=== PATIENT | female | born 2000 | race Caucasian/White ===

== ENCOUNTER 2022-04-20 18:25 | Emergency (ER) | payer MEDICAID, SELFPAY ==
--- NOTE | 2022-04-20 19:03 | ED_ITS ---
HPI - Alcohol General Chief Complaint: ETOH/Substance Use <BERNICE Winston - Last Filed: 04/20/22 19:05> Stated Complaint: alcohol poisoning <BERNICE Winston - Last Filed: 04/20/22 19:05> Time Seen by Provider: 04/20/22 20:05 <BERNICE Winston - Last Filed: 04/20/22 19:05> Source: patient and family <Richard Frias MD - Last Filed: 04/20/22 20:44> Mode of arrival: ambulatory <Richard Frias MD - Last Filed: 04/20/22 20:44> Limitations: no limitations <Richard Frias MD - Last Filed: 04/20/22 20:44> History of Present Illness HPI narrative: 21-year-old female came in after drinking 2 martinis last drink was 14:30 patient felt nauseous and very drunk after which is very unusual for her patient normally drink more than 2 Babar and get less drunk, patient now in the ED is not nauseous, declined abdominal pain and feels better more sober. Decline using any drugs. <Richard Frias MD - Last Filed: 04/20/22 20:44> Related Data Allergies/Adverse Reactions: Allergies Allergy/AdvReac Type Severity Reaction Status Date / Time levalbuterol [From Xopenex] AdvReac Intermediate Unknown Verified 04/20/22 19:04 shell fish Allergy Unknown Unknown Uncoded 04/20/22 19:04 <BERNICE Winston - Last Filed: 04/20/22 19:05> Review of Systems 2 Review of Systems: All other systems are reviewed and are negative Constitutional: Reports as per HPI and Reports no additional constitutional complaints Eyes: Reports as per HPI and Reports no additional eye complaints Reports system reviewed and no additional complaints, except as documented Cardiovascular: Reports as per HPI and Reports no additional cardiovascular complaints Respiratory: Reports as per HPI and Reports no additional respiratory complaints Gastrointestinal: Reports as per HPI and Reports no additional gastrointestinal complaints Genitourinary: Reports no additional female genitourinary complaints Musculoskeletal: Reports no additional musculoskeletal complaints Skin/Breast: Reports system reviewed and no additional complaints, except as docu Psychiatric: Reports no additional psychiatric complaints Endocrine: Reports no additional endocrine complaints Hematologic/Lymphatic: Reports no additional hematologic/lymphatic complaints Allergic/Immunologic: Reports no additional allergic/immunologic complaints Reports system reviewed and no additional complaints, except as documented and Reports Abnormal speech present <Richard Frias MD - Last Filed: 04/20/22 20:44> [facility] Social History Social History: Social History Advance Directives: No Advance Directives Information Provided: No <BERNICE Winston - Last Filed: 04/20/22 19:05> Physical Exam ED Vital Signs: Vital Signs - 24 hr 04/20/22 19:05 04/20/22 19:49 Temperature 99.1 F 98.4 F Pulse Rate 112 H 107 H Respiratory Rate 16 17 Blood Pressure 141/87 H 132/76 Pulse Oximetry 99 98 Oxygen Delivery Method Room Air Room Air BMI result Body Mass Index 29.2 <BERNICE Winston - Last Filed: 04/20/22 19:05> Vital Signs - 24 hr 04/20/22 19:05 04/20/22 19:49 Temperature 99.1 F 98.4 F Pulse Rate 112 H 107 H Respiratory Rate 16 17 Blood Pressure 141/87 H 132/76 Pulse Oximetry 99 98 Oxygen Delivery Method Room Air Room Air BMI result Body Mass Index 29.2 Vital signs have been reviewed as appeared to be correct. Blood pressure normal. Heart rate normal. Respiration rate normal. Temperature normal. Oxygen saturation normal. <Richard Frias MD - Last Filed: 04/20/22 20:44> Appearance: Alert. Oriented X3. No acute distress. Head: Normal external exam. Normocephalic. Atraumatic. No Boyd signs noted. No raccoon eyes noted Eyes: PERRLA. EOMI. Conjunctiva and sclera normal. Eyelids normal. ENT: TM's Normal. Pharynx normal. Uvula midline. Moist mucous membranes. No trismus noted. No drooling noted. No muffled voice noted. Neck: Normal inspection. Neck supple. FROM. No adenopathy. Thyroid Normal. No meningeal signs. No neck mass noted. CVS: Normal heart rate and rhythm. Heart sound normal. No murmurs noted. Pulses normal throughout. Respiratory: No respiratory distress. Painless inspiration. Breath sounds no rmal. No wheezes/rales/rhonchi noted. Chest nontender. No accessory muscle usage noted or decreased air movement noted. Abdomen: Soft and nontender. Bowel sounds normal in all 4 quadrants. No disten tion noted. No organomegaly noted. No visible injury noted. Back: No CVA tenderness. Full range of motion noted. Skin: Skin warm and dry. Normal skin color. Normal skin turgor. No rashes/lesions/lacerations noted. Extremities: No lower extremity edema. Extremities exhibit normal range of mo tion. Extremities nontender. Neuro: Oriented X 3. Cranial nerve exam: II-XII are grossly intact No motor deficit. No sensory deficit. Reflexes normal. <Richard Frias MD - Last Filed: 04/20/22 20:44> Course Course Course Narrative: This is an RME: Additional HPI, ROS, PE not included below will be deferred to primary provider. 21-year-old female presents with alcohol intoxication, will drink 2 martinis and feels nauseous and drunk. Denies SI and HI. No other drugs or tobacco reported. No other medical complaints. Physical exam patient smells like alcohol. Vital signs stable. Plan at this time Zofran, fluids basic labs and ethanol level. Will also obtain SUBRAMANIAN <BERNICE Winston - Last Filed: 04/20/22 19:05> Reevaluation(s) Reevaluation #1: Alcohol intoxicated 21-year-old female, unremarkable labs, vital signs are stable will discharge home with her adult sober family member who is at the bedside. <Richard Frias MD - Last Filed: 04/20/22 20:44> Time: 20:41 <Richard Frias MD - Last Filed: 04/20/22 20:44> Medical Decision Making Differential Diagnosis Differential Diagnoses: The differential diagnosis associated with the presentation includes (Alcohol intoxication, other coingestion, drug abuse, electrolyte disturbance, metabolic encephalopathy.) <Richard Frias MD - Last Filed: 04/20/22 20:44> Lab Data MDM Lab Attestation statement: I reviewed the patient's lab results. <Richard Frias MD - Last Filed: 04/20/22 20:44> Result Diagrams: 04/20/22 19:25 04/20/22 19:25 <BERNICE Winston - Last Filed: 04/20/22 19:05> Labs: Lab Results 04/20/22 04/20/22 04/20/22 Range/Units 19:25 19:25 20:09 WBC 5.5 (4.8-10.8) X10*3/uL RBC 5.17 (4.20-5.50) X10*6/uL Hgb 15.5 (12.0-16.0) g/dl Hct 45.4 (37.0-47.0) % MCV 87.8 (80.0-98.0) fL MCH 30.0 (27.0-33.0) pg MCHC 34.1 (31.0-35.0) g/dl RDW 13.0 (11.0-16.0) % Plt Count 401 H (160-400) X10*3/uL MPV 9.0 L (9.4-12.3) fL Immature Gran % (Auto) 0.4 (0.0-0.4) % Neut % (Auto) 57.4 (45-73) % Lymph % (Auto) 33.2 (20-40) % [place] % (Auto) 5.3 (2-11) % Eos % (Auto) 2.6 (0-4) % Baso % (Auto) 1.1 (0-2) % Lymph # (Auto) 1.8 (1.2-4.9) X10*3/uL [place] # (Auto) 0.3 (0.1-1.2) X10*3/uL Eos # (Auto) 0.1 (0.0-0.4) X10*3/uL Baso # (Auto) 0.1 (0.0-0.2) X10*3/uL Abs Immat Gran (auto) 0.02 (0.00-0.03) X10*3/uL Absolute Neuts (auto) 3.2 (2.0-8.3) x10*3/uL Absolute Nucleated RBC 0.000 (0.0-0.012) X10*3/uL Nucleated RBC % (auto) 0.0 (0.0-0.2) /100WBC Sodium 140 (135-145) mmol/L Potassium 4.3 (3.3-5.1) mmol/L Chloride 108 (96-108) mmol/L Carbon Dioxide 19 L (22-29) mmol/L Anion Gap 17 (12-20) BUN 11 (9-16) mg/dL Creatinine 0.88 (0.5-1.4) mg/dL Estim Creat Clear Calc 100.7 Estimated GFR > 60 Random Glucose 105 (60-115) mg/dL Calcium 9.2 (8.4-10.2) mg/dL Magnesium 2.0 (1.6-2.6) mg/dL Total Bilirubin 0.2 (0.0-1.0) mg/dL AST 12 (5-31) U/L ALT 14 (0-31) U/L Alkaline Phosphatase 98 (39-117) U/L Total Protein 7.4 (6.5-8.0) g/dL Albumin 4.7 (3.5-5.0) g/dL Urine Color Yellow Urine Appearance Clear Urine pH 5.0 (5.0-9.0) Ur Specific [place] 1.020 (1.005-1.025) Urine Protein Negative (Neg-Trace) mg/dL Urine Glucose (UA) Negative (Negative) mg/dL Urine Ketones Trace (Negative) mg/dL Urine Blood Negative (Negative) Urine Nitrite Negative (Negative) Ur Leukocyte Esterase Negative (Negative) Urine Test (NEGATIVE) Urine Opiates Screen (Not Detect) Urine Fentanyl Screen (Not Detect) Ur Barbiturates Screen (Not Detect) Ur Phencyclidine Scrn (Not Detect) Ur Amphetamines Screen (Not Detect) U Benzodiazepines Scrn (Not Detect) Urine Cocaine Screen (Not Detect) U Marijuana (THC) Screen (Not Detect) Ethyl Alcohol 63 mg/dL 04/20/22 04/20/22 Range/Units 20:09 20:09 WBC (4.8-10.8) X10*3/uL RBC (4.20-5.50) X10*6/uL Hgb (12.0-16.0) g/dl Hct (37.0-47.0) % MCV (80.0-98.0) fL MCH (27.0-33.0) pg MCHC (31.0-35.0) g/dl RDW (11.0-16.0) % Plt Count (160-400) X10*3/uL MPV (9.4-12.3) fL Immature Gran % (Auto) (0.0-0.4) % Neut % (Auto) (45-73) % Lymph % (Auto) (20-40) % [place] % (Auto) (2-11) % Eos % (Auto) (0-4) % Baso % (Auto) (0-2) % Lymph # (Auto) (1.2-4.9) X10*3/uL [place] # (Auto) (0.1-1.2) X10*3/uL Eos # (Auto) (0.0-0.4) X10*3/uL Baso # (Auto) (0.0-0.2) X10*3/uL Abs Immat Gran (auto) (0.00-0.03) X10*3/uL Absolute Neuts (auto) (2.0-8.3) x10*3/uL Absolute Nucleated RBC (0.0-0.012) X10*3/uL Nucleated RBC % (auto) (0.0-0.2) /100WBC Sodium (135-145) mmol/L Potassium (3.3-5.1) mmol/L Chloride (96-108) mmol/L Carbon Dioxide (22-29) mmol/L Anion Gap (12-20) BUN (9-16) mg/dL Creatinine (0.5-1.4) mg/dL Estim Creat Clear Calc Estimated GFR Random Glucose (60-115) mg/dL Calcium (8.4-10.2) mg/dL Magnesium (1.6-2.6) mg/dL Total Bilirubin (0.0-1.0) mg/dL AST (5-31) U/L ALT (0-31) U/L Alkaline Phosphatase (39-117) U/L Total Protein (6.5-8.0) g/dL Albumin (3.5-5.0) g/dL Urine Color Urine Appearance Urine pH (5.0-9.0) Ur Specific [place] (1.005-1.025) Urine Protein (Neg-Trace) mg/dL Urine Glucose (UA) (Negative) mg/dL Urine Ketones (Negative) mg/dL Urine Blood (Negative) Urine Nitrite (Negative) Ur Leukocyte Esterase (Negative) Urine Test NEGATIVE (NEGATIVE) Urine Opiates Screen Not Detected (Not Detect) Urine Fentanyl Screen Not Detected (Not Detect) Ur Barbiturates Screen Not Detected (Not Detect) Ur Phencyclidine Scrn Not Detected (Not Detect) Ur Amphetamines Screen Not Detected (Not Detect) U Benzodiazepines Scrn Not Detected (Not Detect) Urine Cocaine Screen Not Detected (Not Detect) U Marijuana (THC) Screen Not Detected (Not Detect) Ethyl Alcohol mg/dL <BERNICE Winston - Last Filed: 04/20/22 19:05> Lab Results 04/20/22 04/20/22 04/20/22 Range/Units 19:25 19:25 20:09 WBC 5.5 (4.8-10.8) X10*3/uL RBC 5.17 (4.20-5.50) X10*6/uL Hgb 15.5 (12.0-16.0) g/dl Hct 45.4 (37.0-47.0) % MCV 87.8 (80.0-98.0) fL MCH 30.0 (27.0-33.0) pg MCHC 34.1 (31.0-35.0) g/dl RDW 13.0 (11.0-16.0) % Plt Count 401 H (160-400) X10*3/uL MPV 9.0 L (9.4-12.3) fL Immature Gran % (Auto) 0.4 (0.0-0.4) % Neut % (Auto) 57.4 (45-73) % Lymph % (Auto) 33.2 (20-40) % [place] % (Auto) 5.3 (2-11) % Eos % (Auto) 2.6 (0-4) % Baso % (Auto) 1.1 (0-2) % Lymph # (Auto) 1.8 (1.2-4.9) X10*3/uL [place] # (Auto) 0.3 (0.1-1.2) X10*3/uL Eos # (Auto) 0.1 (0.0-0.4) X10*3/uL Baso # (Auto) 0.1 (0.0-0.2) X10*3/uL Abs Immat Gran (auto) 0.02 (0.00-0.03) X10*3/uL Absolute Neuts (auto) 3.2 (2.0-8.3) x10*3/uL Absolute Nucleated RBC 0.000 (0.0-0.012) X10*3/uL Nucleated RBC % (auto) 0.0 (0.0-0.2) /100WBC Sodium 140 (135-145) mmol/L Potassium 4.3 (3.3-5.1) mmol/L Chloride 108 (96-108) mmol/L Carbon Dioxide 19 L (22-29) mmol/L Anion Gap 17 (12-20) BUN 11 (9-16) mg/dL Creatinine 0.88 (0.5-1.4) mg/dL Estim Creat Clear Calc 100.7 Estimated GFR > 60 Random Glucose 105 (60-115) mg/dL Calcium 9.2 (8.4-10.2) mg/dL Magnesium 2.0 (1.6-2.6) mg/dL Total Bilirubin 0.2 (0.0-1.0) mg/dL AST 12 (5-31) U/L ALT 14 (0-31) U/L Alkaline Phosphatase 98 (39-117) U/L Total Protein 7.4 (6.5-8.0) g/dL Albumin 4.7 (3.5-5.0) g/dL Urine Color Yellow Urine Appearance Clear Urine pH 5.0 (5.0-9.0) Ur Specific [place] 1.020 (1.005-1.025) Urine Protein Negative (Neg-Trace) mg/dL Urine Glucose (UA) Negative (Negative) mg/dL Urine Ketones Trace (Negative) mg/dL Urine Blood Negative (Negative) Urine Nitrite Negative (Negative) Ur Leukocyte Esterase Negative (Negative) Urine Test (NEGATIVE) Urine Opiates Screen (Not Detect) Urine Fentanyl Screen (Not Detect) Ur Barbiturates Screen (Not Detect) Ur Phencyclidine Scrn (Not Detect) Ur Amphetamines Screen (Not Detect) U Benzodiazepines Scrn (Not Detect) Urine Cocaine Screen (Not Detect) U Marijuana (THC) Screen (Not Detect) Ethyl Alcohol 63 mg/dL 04/20/22 04/20/22 Range/Units 20:09 20:09 WBC (4.8-10.8) X10*3/uL RBC (4.20-5.50) X10*6/uL Hgb (12.0-16.0) g/dl Hct (37.0-47.0) % MCV (80.0-98.0) fL MCH (27.0-33.0) pg MCHC (31.0-35.0) g/dl RDW (11.0-16.0) % Plt Count (160-400) X10*3/uL MPV (9.4-12.3) fL Immature Gran % (Auto) (0.0-0.4) % Neut % (Auto) (45-73) % Lymph % (Auto) (20-40) % [place] % (Auto) (2-11) % Eos % (Auto) (0-4) % Baso % (Auto) (0-2) % Lymph # (Auto) (1.2-4.9) X10*3/uL [place] # (Auto) (0.1-1.2) X10*3/uL Eos # (Auto) (0.0-0.4) X10*3/uL Baso # (Auto) (0.0-0.2) X10*3/uL Abs Immat Gran (auto) (0.00-0.03) X10*3/uL Absolute Neuts (auto) (2.0-8.3) x10*3/uL Absolute Nucleated RBC (0.0-0.012) X10*3/uL Nucleated RBC % (auto) (0.0-0.2) /100WBC Sodium (135-145) mmol/L Potassium (3.3-5.1) mmol/L Chloride (96-108) mmol/L Carbon Dioxide (22-29) mmol/L Anion Gap (12-20) BUN (9-16) mg/dL Creatinine (0.5-1.4) mg/dL Estim Creat Clear Calc Estimated GFR Random Glucose (60-115) mg/dL Calcium (8.4-10.2) mg/dL Magnesium (1.6-2.6) mg/dL Total Bilirubin (0.0-1.0) mg/dL AST (5-31) U/L ALT (0-31) U/L Alkaline Phosphatase (39-117) U/L Total Protein (6.5-8.0) g/dL Albumin (3.5-5.0) g/dL Urine Color Urine Appearance Urine pH (5.0-9.0) Ur Specific [place] (1.005-1.025) Urine Protein (Neg-Trace) mg/dL Urine Glucose (UA) (Negative) mg/dL Urine Ketones (Negative) mg/dL Urine Blood (Negative) Urine Nitrite (Negative) Ur Leukocyte Esterase (Negative) Urine Test NEGATIVE (NEGATIVE) Urine Opiates Screen Not Detected (Not Detect) Urine Fentanyl Screen Not Detected (Not Detect) Ur Barbiturates Screen Not Detected (Not Detect) Ur Phencyclidine Scrn Not Detected (Not Detect) Ur Amphetamines Screen Not Detected (Not Detect) U Benzodiazepines Scrn Not Detected (Not Detect) Urine Cocaine Screen Not Detected (Not Detect) U Marijuana (THC) Screen Not Detected (Not Detect) Ethyl Alcohol mg/dL <Richard Frias MD - Last Filed: 04/20/22 20:44> Discharge Plan Discharge Clinical Impression: Alcoholic intoxication <BERNICE Winston - Last Filed: 04/20/22 19:05> Patient Disposition: Home, Self-Care <BERNICE Winston - Last Filed: 04/20/22 19:05> Instructions: Alcohol Use Disorder (ED) <BERNICE Winston - Last Filed: 04/20/22 19:05> Referrals: Jeromy Ramachandran MD [Primary Care Provider] - <BERNICE Winston - Last Filed: 04/20/22 19:05>
[2022-04-20 19:05] VITALS: BP 141/87; PULSE 112; RESP 16; TEMP 37.3; O2SAT 99; BMI 29.2
[2022-04-20 19:30] LABS: MANUAL DIFF FLAG NO
[2022-04-20 19:31] LABS: Basophils Absolute Auto 0.1 X10*3/uL (0.0-0.2); Basophils Percent Auto 1.1 % (0-2); Eosinophils Absolute Auto 0.1 X10*3/uL (0.0-0.4); Eosinophils Percent Auto 2.6 % (0-4); Hematocrit 45.4 % (37.0-47.0); Hemoglobin 15.5 g/dl (12.0-16.0); Imm Gran Abs Auto 0.02 X10*3/uL (0.00-0.03); Imm Gran Pct Auto 0.4 % (0.0-0.4); Lymphocytes Absolute Auto 1.8 X10*3/uL (1.2-4.9); Lymphocytes Percent Auto 33.2 % (20-40); Mean Corpuscular HGB Conc 34.1 g/dl (31.0-35.0); Mean Corpuscular Volume 87.8 fL (80.0-98.0); Monocytes Absolute Auto 0.3 X10*3/uL (0.1-1.2); Monocytes Percent Auto 5.3 % (2-11); Neutrophils Absolute Auto 3.2 x10*3/uL (2.0-8.3); Neutrophils Percent Auto 57.4 % (45-73); Platelet Count 401 X10*3/uL (160-400); Red Blood Count 5.17 X10*6/uL (4.20-5.50); White Blood Count 5.5 X10*3/uL (4.8-10.8)
[2022-04-20 19:47] LABS: Alanine Aminotransferase 14 U/L (0-31); Albumin Level 4.7 g/dL (3.5-5.0); Alkaline Phosphatase 98 U/L (39-117); Anion Gap 17 (12-20); Aspartate Amino Transferase 12 U/L (5-31); Bilirubin Total 0.2 mg/dL (0.0-1.0); Blood Urea Nitrogen 11 mg/dL (9-16); Calcium 9.2 mg/dL (8.4-10.2); Carbon Dioxide 19 mmol/L (22-29); Chloride 108 mmol/L (96-108); Creatinine Clr Calc Pharmacy 100.7; Estimated Glomerular Filt Rate > 60; Ethanol 63 mg/dL; Glucose Random 105 mg/dL (60-115); Potassium 4.3 mmol/L (3.3-5.1); Sodium 140 mmol/L (135-145); Total Protein 7.4 g/dL (6.5-8.0)
--- NOTE | 2022-04-20 19:47 | PC.NURSE ---
pt suffers from chronic pain and has headaches daily. pt doesnt states that she is in pain at this time. alert talking head bobbing.
[2022-04-20 19:49] VITALS: BP 132/76; PULSE 107; RESP 17; TEMP 36.9; O2SAT 98
[2022-04-20 20:22] LABS: UPreg QC Valid YES; Urine Pregnancy NEGATIVE (NEGATIVE)
[2022-04-20 20:23] LABS: Appearance Urine Clear; Color Urine Yellow; Glucose Urine UA Negative (Negative); Leukocyte Esterase Urine Negative (Negative); Nitrite Urine Negative (Negative); Urine Blood Negative (Negative); Urine Ketones Trace mg/dL (Negative); Urine Protein Negative (Neg-Trace)
[2022-04-20 20:32] LABS: Amphetamine Screen Urine Not Detected (Not Detect); Barbiturates, Urine Not Detected (Not Detect); Benzodiazepines Screen Urine Not Detected (Not Detect); Cannabinoid Screen Urine Not Detected (Not Detect); Cocaine Screen Urine Not Detected (Not Detect); Fentanyl, urine Not Detected (Not Detect); Opiate Screen Urine Not Detected (Not Detect); Phencyclidine Screen Urine Not Detected (Not Detect)
== END 2022-04-20 21:12 | disposition home or self-care (01) ==
PROVIDERS: Physician Assistant; Emergency Provider Emergency Medicine; PCP Internal Medicine
DX: F10.129 Alcohol abuse with intoxication, unspecified (principal); Y90.3 Blood alcohol level of 60-79 mg/100 ml; Z79.899 Other long term (current) drug therapy; Z71.41 Alcohol abuse counseling and surveillance of alcoholic
CPT/HCPCS: 36415; 80053; 80307; 81003; 81025; 82077; 83735; 85025; 96361; 96374; 99284

== ENCOUNTER 2022-06-11 08:07 | Outpatient (REF) | payer MEDICAID, SELFPAY ==
--- NOTE | ~2022-06-11 | MM_ITS ---
EXAMINATION: MM DIAGNOSTIC DIGITAL BREAST TOMOSYNTHESIS, BILATERAL US DIAGNOSTIC ULTRASOUND BREAST, BILATERAL CLINICAL INFORMATION: Chronic palpable areas lateral right breast noted by patient with some tenderness/pain. Family history breast cancer paternal grandmother. The lifetime risk of breast cancer based on the Tyrer-Cuzick Model is 13%. COMPARISON: Right breast ultrasound 10/15/2017 ([facility]). TECHNIQUE: Targeted right breast ultrasound is initially performed using grayscale imaging and color Doppler without and with harmonics. Patient is able to point to the area of concern at time of imaging. Digital breast tomosynthesis is performed in both the craniocaudal and mediolateral oblique views along with computer-aided detection (CAD). Synthesized 2D images are generated from the tomosynthesis. FINDINGS: Ultrasound (right): Ultrasound right breast demonstrates no cystic or solid mass or architectural abnormality. There is no focal duct ectasia or hyperemia. No skin thickening or edema tracking in soft tissue planes. Mammography (bilateral): There are scattered areas of fibroglandular density (ACR BI-RADS breast composition Category b). There are no significant masses, abnormal calcifications, or other abnormalities. The axilla are unremarkable. The skin contours are smooth. No skin thickening or coarsening of the Rodolfo's ligaments. Results are discussed with the patient at time of visit. Patient should be managed based on the clinical impression. If there is still a clinically palpable concern, surgical consult may be considered for further evaluation and management as needed. MM/MM tomosynthesis diagnostic BI IMPRESSION: -No mammographic evidence of malignancy or inflammatory changes. -Unremarkable right breast ultrasound. ASSESSMENT: BI-RADS 1: Negative RECOMMENDATION: 1. Patient should be managed based on the clinical impression. 2. Otherwise, routine annual screening mammography, beginning age 40, or earlier as clinical risk factors warrant. This patient's information was entered into a reminder system with a target due date for their next mammogram.
== END 2022-06-11 08:08 | disposition home or self-care (01) ==
LOC: HO.MAMMO 08:07
PROVIDERS: PCP Internal Medicine; Visit Provider Physician Assistant
DX: N63.11 Unspecified lump in the right breast, upper outer quadrant (principal)
CPT/HCPCS: 76642; 77062; 77066

== ENCOUNTER 2022-07-03 08:30 | Outpatient (REF) | payer MEDICAID, SELFPAY ==
--- NOTE | ~2022-07-03 | XR_ITS ---
EXAMINATION: Cervical and thoracic spine x-ray CLINICAL INFORMATION: Cervical radiculopathy. Thoracic spine pain. COMPARISON: None. TECHNIQUE: 3 views of the cervical spine and 2 views of the thoracic spine FINDINGS: Cervical spine: Bone alignment is normal. No fracture or dislocation. Normal disc spaces. Normal prevertebral soft tissues. Thoracic spine: Bone alignment is normal. No fracture or dislocation. Normal disc spaces. Normal paraspinal soft tissues. XR/XR cervical spine 3V IMPRESSION: Normal cervical and thoracic spine.
--- NOTE | ~2022-07-03 | XR_ITS ---
EXAMINATION: Cervical and thoracic spine x-ray CLINICAL INFORMATION: Cervical radiculopathy. Thoracic spine pain. COMPARISON: None. TECHNIQUE: 3 views of the cervical spine and 2 views of the thoracic spine FINDINGS: Cervical spine: Bone alignment is normal. No fracture or dislocation. Normal disc spaces. Normal prevertebral soft tissues. Thoracic spine: Bone alignment is normal. No fracture or dislocation. Normal disc spaces. Normal paraspinal soft tissues. XR/XR thoracic spine 3V IMPRESSION: Normal cervical and thoracic spine.
== END 2022-07-03 08:31 | disposition home or self-care (01) ==
LOC: HO.HMGCX 08:30
PROVIDERS: PCP Internal Medicine; Visit Provider Physician Assistant
DX: M54.12 Radiculopathy, cervical region (principal); M54.6 Pain in thoracic spine
CPT/HCPCS: 72040; 72072

== ENCOUNTER 2022-08-29 10:29 | Outpatient (REF) | payer MEDICAID, SELFPAY ==
[2022-09-01 14:34] LABS: A. Phagocytphilium DNA,RT-PCR NOT DETECTED (NOT DETECTED); Babesia Microti DNA, RT-PCR NOT DETECTED (NOT DETECTED); Borrelia Miyamotoi,DNA RT-PCR NOT DETECTED (NOT DETECTED); E.Chaffeensis DNA RT-PCR NOT DETECTED (NOT DETECTED); Lyme(Borrelia ssp)DNA RT-PCR NOT DETECTED (NOT DETECTED)
[2022-09-03 22:48] LABS: Spotted Fever Group IgG Not Detected (Not Detected); Spotted Fever Group IgM Not Detected (Not Detected); Typhus Fever Group IgG Not Detected (Not Detected); Typhus Fever Group IgM Not Detected (Not Detected)
== END 2022-08-29 10:30 | disposition home or self-care (01) ==
LOC: HO.MANLDS 10:29
PROVIDERS: Visit Provider Physician Assistant
DX: T14.8XXA Other injury of unspecified body region, initial encounter (principal); W57.XXXA Bitten or stung by nonvenomous insect and other nonvenomous arthropods, initial encounter
CPT/HCPCS: 36415; 86757; 87798; 87801

== ENCOUNTER 2022-09-18 07:59 | Outpatient (REF) | payer MEDICAID, SELFPAY ==
--- NOTE | 2022-09-18 08:04 | EMG_ITS ---
Bilateral median and ulnar motor and sensory studies were performed. Bilateral radial and median and lateral antecubital sensory studies were performed and paraspinal muscles were tested with a needle. IMPRESSION: Mild bilateral median neuropathy across carpal tunnel with no evidence of radiculopathy. MD DORA Jacob/EDDIE / [id number]
== END 2022-09-18 08:00 | disposition home or self-care (01) ==
LOC: HO.NEURO 07:59
PROVIDERS: PCP Internal Medicine; Visit Provider Physician Assistant
DX: M54.12 Radiculopathy, cervical region (principal)
CPT/HCPCS: 95886; 95913

== ENCOUNTER 2023-03-30 18:20 | Emergency (ER) | payer MEDICAID, SELFPAY ==
--- NOTE | ~2023-03-30 | XR_ITS ---
EXAMINATION: XR CHEST CLINICAL INFORMATION: Productive cough. COMPARISON: None available. TECHNIQUE: 2 views of the chest were obtained. FINDINGS: The trachea is in normal anatomic position. Heart size is normal. The lungs are clear. Pleural spaces are clear. No pneumothorax. No acute osseous abnormality. XR/XR chest 2V IMPRESSION: No acute cardiopulmonary disease.
--- NOTE | 2023-03-30 18:50 | ED_ITS ---
HPI - General Adult General Chief complaint: Upper Respiratory Symptoms Stated complaint: Difficulty breathing, hx of asthma Time Seen by Provider: 03/30/23 20:30 Source: patient Mode of arrival: ambulatory Limitations: no limitations History of Present Illness HPI narrative: 22-year-old female with pmhx significant for asthma presents to the ED today for evaluation of issues with my breathing which began this morning. Admits to waking up this morning with lungs full of fluid , endorsing productive cough and chest tightness only on coughing. She has been using her albuterol inhaler at home without relief of symptoms. Reports testing negative for COVID at home. 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 Denies recent travel or long car rides. Denies fever, chills, sore throat, ear pain, dyspnea, chest pain, wheezing, nausea vomiting, abdominal pain. Related Data Previous Rx's Medication Instructions Recorded benzonatate 100 mg capsule 100 mg PO BID PRN cough #20 caps 03/30/23 prednisone 20 mg tablet 20 mg PO DAILY 5 days #5 tabs 03/30/23 Allergies Allergy/AdvReac Type Severity Reaction Status Date / Time levalbuterol [From Xopenex] AdvReac Intermediate Unknown Verified 03/30/23 18:50 shell fish Allergy Unknown Unknown Uncoded 03/30/23 18:50 Review of Systems Review of Systems: Constitutional: No fever, chills, fatigue, night sweats, weight changes ENT/Mouth: No ear pain, hearing loss, nasal congestion, sinus pain, rhinorrhea, sore throat Eyes: No eye pain, swelling, redness, vision changes, discharge Cardio: No chest pain, palpitations, BROWN, orthopnea, peripheral edema Pulm: No SOB, +cough, +sputum, No wheezing, dyspnea, hemoptysis GI: No nausea, vomiting, hematemesis, abdominal pain, diarrhea, constipation, hematochezia, melena : No irregular bleeding, dysuria, frequency, urgency, hesitancy, hematuria, flank pain MSK: No back pain, neck pain, joint pain, myalgias Skin: No lesions, rashes Neuro: No weakness, numbness, paresthesias, LOC, dizziness, headache All other systems reviewed and are negative. [facility] Past Medical History Attestation statement: The following information was validated with the patient. Source: old records reviewed and nursing notes reviewed Social History Social History Advance Directives: No Advance Directives Information Provided: No Physical Exam ED Vital Signs: Vital Signs - 24 hr 03/30/23 18:51 Temperature 98 F Pulse Rate 85 Respiratory Rate 18 Blood Pressure 142/87 H Pulse Oximetry 98 Oxygen Delivery Method Room Air BMI result Body Mass Index 33.9 Vital signs notable for hypertension, otherwise WNL. Afebrile. Const General: cooperative, healthy appearing, comfortable, no acute distress, alert and awake Orientation/consciousness: patient oriented x3 Limitations: no limitations HENMT Other: + posterior oropharynx without erythema or edema, uvula is midline, no tonsilar exudates or peritonsillar masses, controlling secretions and speaking in complete sentences. Head: Yes normal to inspection, Yes normocephalic and Yes atraumatic Ears: hearing grossly normal bilaterally, external ears normal, TM's normal bilaterally, EAC's normal, mastoids normal and no periauricular adenopathy General nose exam: Normal external nose present and No nasal discharge present Face and sinus: Yes normal facial exam and Yes sinuses nontender Eyes General: appearance normal, both eyes and all related structures Conjunctivae: conjunctivae normal Sclerae: sclerae normal Pupils: Equal, round and reactive pupils present Neck Other: + no cervical, submandibular or submental LAD. Neck: Yes normal visual inspection and Yes full ROM Resp Effort & Inspection: normal respiratory effort, able to speak in complete sentences, no cough, no respiratory distress, no stridor, no tripod positioning and no use of accessory muscles Auscultation: clear to auscultation bilaterally and no wheezes Cardio Rate: regular rate Rhythm: regular rhythm Skin General skin exam: no rashes or lesions noted Neuro General: patient oriented x3, gait normal and moves all extremities Cranial nerves: Yes Equal, round and reactive pupils present Extrem General: Yes normal to inspection Course Course Course Narrative: 2034-- patient tested negative for both influenza and COVID. Chest x-ray is unremarkable and does not demonstrate any infiltrate or consolidation to suggest pneumonia. Patient likely has a viral upper respiratory infection which is exacerbating her asthma. Physical exam is unremarkable. Lungs are CTA bilaterally without wheezes - patient does not require breathing treatment in the ED today. Will send prednisone and Tessalon Perles to her pharmacy. > when I informed patient of all workup results, she expresses frustration that I do not have an exact diagnosis for her. She would like to know if she has RSV. I explained to the patient that we currently are not offering RSV testing as there are limited swabs that are reserved for the elderly. She expresses understanding. She has remained stable throughout her ED visit today. I discussed worrisome signs and symptoms of when to return to the ED. All questions answered at this time. Patient is agreeable disposition stable for discharge. Medical Decision Making Medical Decision Making [facility] Narrative: 22-year-old female with pmhx significant for asthma presents to the ED today for evaluation of issues with my breathing which began this morning. Patient hypertensive to 142/82, vitals otherwise WNL. She is afebrile. She is nontoxic-appearing and in no acute distress. Airways patent. Posterior oropharynx without erythema or edema, uvula midline, no tonsillar edema or exudates, controlling secretions and speaking in complete sentences. Bilateral EACs and TMs WNL. RRR. Lungs are CTA bilaterally without wheezes. No calf tenderness. Concern for asthma exacerbation, asthma, viral syndrome, pneumonia. Unlikely strep throat, mono, [employer], retropharyngeal abscess, epiglottitis, acute respiratory distress, pleural effusion, pulmonary embolism. Plan for viral serology, chest x-ray and re-evaluation. Differential Diagnosis Differential Diagnoses: The differential diagnosis associated with the presentation includes as above. Admission/Observation Not indicated Lab Data [facility] Lab Attestation statement: I reviewed the patient's lab results. as above Labs: Lab Results 03/30/23 Range/Units 18:58 COVID-19 (ARIANE) Negative (Negative) COVID-19 Clin Com See Note Influenza Type A (IVELISSE) Negative (Negative) Influenza Type B (IVELISSE) Negative (Negative) Influenza A & B Note See Note Independent Interpretation I performed an independent interpretation of an: Plain X-Ray Interpretation: I have personally reviewed patient's chest x-ray and agree with radiologist's interpretation. Radiology Impression Discussion of test interpretation with radiology: I have reviewed the radiologist's reading. Radiologist Impression: XR chest 2V IMPRESSION: No acute cardiopulmonary disease. External Record Review External record reviewed: Inpatient record Prescription Management I considered prescription management with: Pain Medication and Other (Steroid) Chronic Conditions Patient?s care impacted by: Other (Asthma) Social Determinants Patient?s care significantly limited by Social Determinants of Health including: Other Social Determinant of Health Critical Care Time Critical Care Time Critical Care Time: No Discharge Plan Discharge Clinical Impression: Asthma, Acute upper respiratory infection Patient Disposition: Home, Self-Care Instructions: Asthma (ED), Upper Respiratory Infection (ED), Viral Syndrome (ED) Additional Instructions: You tested negative for flu and COVID today. Your chest x-ray was normal. You likely have a viral upper respiratory infection that does not require antibiotic treatment. Tessalon Perles have been sent to your pharmacy. Take these as needed for cough. Prednisone as a steroid that has been sent to your pharmacy. Take this as directed over the next 5 days. Alter ibuprofen and Tylenol for fevers and body aches. Use your albuterol inhaler with caution. Take 2-3 puffs every 20 minutes as needed for wheezing or shortness of breath. If you use this numerous times w ithout relief, please come to the emergency department as excessive albuterol can increase your heart rate. Follow-up with your PCP as needed. If symptoms persist or worsen please return to the emergency department. The case of an emergency call 911. Prescriptions: New benzonatate 100 mg capsule 100 mg PO BID PRN (Reason: cough) Qty: 20 0RF prednisone 20 mg tablet 20 mg PO DAILY 5 Days Qty: 5 0RF Referrals: Jeromy Ramachandran MD [Primary Care Provider] - Stand Alone Forms: Work/School Release
[2023-03-30 18:51] VITALS: BP 142/87; PULSE 85; RESP 18; TEMP 36.6; O2SAT 98; BMI 33.9
[2023-03-30 19:20] LABS: COVID-19 Test Negative (Negative); IDNOW Serial# 08D9AD1C
[2023-03-30 19:21] LABS: IDNOW Serial# 152EDE1D; Influenza A Negative (Negative); Influenza B2 Negative (Negative)
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
== END 2023-03-30 21:03 | disposition home or self-care (01) ==
PROVIDERS: Physician Assistant Medical; Emergency Provider Internal Medicine; PCP Internal Medicine
DX: J06.9 Acute upper respiratory infection, unspecified (principal); J45.909 Unspecified asthma, uncomplicated; R05.9 Cough, unspecified; R07.89 Other chest pain; Z11.52 Encounter for screening for COVID-19
CPT/HCPCS: 71046; 87502; 87635; 99282; 99283